=== PATIENT | male | born 1940 | race Caucasian/White ===

== ENCOUNTER 2018-03-18 20:37 | Emergency (ER) | payer MEDICARE, BC ==
--- NOTE | 2018-03-18 20:41 | ER Report ---
History and Physical Time Seen By MD: 20:40 HPI/ROS CHIEF COMPLAINT: Shortness of breath HISTORY OF PRESENT ILLNESS: 77-year-old male with a cardiac history, status post a triple bypass, chronic congestive heart failure, type II diabetes. Patient's here on vacation from [place]. He attended a football game today. She came from [place], [place] yesterday. He has shortness of breath and congested lungs. He stopped taking his Lasix 20 mg per day. Patient's noted that he's had leg swelling for several weeks. He stopped taking his Lasix as he thought it wasn't working. Patient's now at 7200 feet in his respiratory status is deteriorating. He was planning on going up to altitude tomorrow and going deer hunting. REVIEW OF SYSTEMS: Respiratory: As above Cardiovascular: No chest pain, no palpitations. Gastrointestinal: No vomiting, no abdominal pain. Musculoskeletal: No back pain. Allergies: Coded Allergies: No Known Drug Allergies (Unverified , 03/18/18) Home Meds Active Scripts Furosemide (LASIX) 20 Mg Tablet, 1 TAB PO DAILY for leg swelling, #30 TAB Prov:GERMÁN WHALEY DO 03/18/18 Reported Medications Ascorbic Acid/Ascorbate Sodium (Vit C-Macy Hips 500 mg Chew Tb) 500 Mg Tab.chew 03/18/18 Metoprolol Tartrate (METOPROLOL TARTRATE) 25 Mg Tablet, 2 TAB PO BID, TAB 03/18/18 Calcium Carbonate (TUMS) 200 Mg Tab.chew, 200 MG PO, TAB.CHEW 03/18/18 Rosuvastatin Calcium (CRESTOR) 5 Mg Tablet, 5 MG PO QDAY 03/18/18 Cholecalciferol (Vitamin D3) (VITAMIN D3) 1,000 Unit Tablet, 1000 UNIT PO, TAB 03/18/18 Amlodipine Besylate (AMLODIPINE BESYLATE) 10 Mg Tablet, 1 TAB PO QDAY, TAB 03/18/18 Ibuprofen (IBUPROFEN) 400 Mg Tablet, 1 TAB PO Q6H, TAB 03/18/18 Omeprazole (OMEPRAZOLE) 20 Mg Capsule., 1 CAP PO QDAY, CAP 03/18/18 Reviewed Nurses Notes: Yes Old Medical Records Reviewed: Yes Constitutional Vital Sign - Last 24 Hours 03/18/18 03/18/18 03/18/18 03/18/18 20:43 20:45 20:52 21:01 Temp 97.9 Pulse 69 68 63 Resp 22 15 14 B/P (MAP) 154/89 (110) 154/89 Pulse Ox 89 91 O2 Delivery Room Air 03/18/18 03/18/18 03/18/18 03/18/18 21:07 21:22 21:27 21:52 Pulse 103 61 81 Resp 35 20 19 Pulse Ox 88 93 93 O2 Flow Rate 2.0 03/18/18 03/18/18 22:07 22:40 Pulse 85 85 Resp 15 16 B/P (MAP) 138/88 (105) Pulse Ox 95 92 O2 Delivery Room Air Physical Exam General Appearance: The patient is alert, has no immediate need for airway protection and no current signs of toxicity. Vital signs stable, afebrile, pulse ox normal, rhonchorous respirations HEENT: Pupils equal and round no injection. TMs normal, oropharynx without redness or exudates Respiratory: Chest is non tender, bibasilar rales with wheezing Cardiac: regular rate and rhythm, no murmur Gastrointestinal: Abdomen is soft and non tender, no masses, bowel sounds normal. Musculoskeletal: Neck: Neck is supple and non tender. Extremities have full range of motion and are non tender. 2+ edema Skin: No rashes or lesions. DIFFERENTIAL DIAGNOSIS: After history and physical exam differential diagnosis was considered for shortness of breath including but not limited to pulmonary infectious process, COPD, asthma, pulmonary embolus and congestive heart failure. Medical Decision Making Data Points Result Diagram: 03/18/18205503/18/182055 Laboratory Hematology Test 03/18/18 20:56 Red Blood Count 4.66 M/uL (4.00-5.60) Mean Corpuscular Volume 96.2 fL (80.0-96.0) Mean Corpuscular Hemoglobin 33.4 pg (26.0-33.0) Mean Corpuscular Hemoglobin Concent 34.7 g/dL (32.0-36.0) Red Cell Distribution Width 13.7 % (11.5-14.5) Mean Platelet Volume 8.8 fL (7.2-11.1) Neutrophils (%) (Auto) 61.9 % (39.4-72.5) Lymphocytes (%) (Auto) 13.2 % (17.6-49.6) Monocytes (%) (Auto) 21.2 % (4.1-12.4) Eosinophils (%) (Auto) 2.0 % (0.4-6.7) Basophils (%) (Auto) 1.7 % (0.3-1.4) Nucleated RBC Relative Count (auto) 0.1 /100WBC Neutrophils # (Auto) 3.9 K/uL (2.0-7.4) Lymphocytes # (Auto) 0.8 K/uL (1.3-3.6) Monocytes # (Auto) 1.3 K/uL (0.3-1.0) Eosinophils # (Auto) 0.1 K/uL (0.0-0.5) Basophils # (Auto) 0.1 K/uL (0.0-0.1) Nucleated RBC Absolute Count (auto) 0.01 K/uL Peripheral Blood Smear Yes Y/N Sodium Level 138 mmol/L (137-145) Potassium Level 3.3 mmol/L (3.5-5.0) Chloride Level 101 mmol/L (98-107) Carbon Dioxide Level 23 mmol/L (22-30) Blood Urea Nitrogen 39 mg/dl (9-21) Creatinine 2.10 mg/dl (0.66-1.25) Glomerular Filtration Rate Calc 30.6 Random Glucose 105 mg/dl (75-110) Calcium Level 9.2 mg/dl (8.4-10.2) Total Bilirubin 3.0 mg/dl (0.2-1.3) Aspartate Amino Transf (AST/SGOT) 47 U/L (0-35) Alanine Aminotransferase (ALT/SGPT) 47 U/L (0-56) Alkaline Phosphatase 71 U/L (0-126) Troponin I 0.023 ng/ml B-Type Natriuretic Peptide 528 pg/ml (0-100) Total Protein 6.9 g/dl (6.3-8.2) Albumin 3.8 g/dl (3.5-5.0) Chemistry Test 03/18/18 20:56 White Blood Count 6.3 k/uL (4.5-11.0) Red Blood Count 4.66 M/uL (4.00-5.60) Hemoglobin 15.6 g/dL (14.0-18.0) Hematocrit 44.8 % (42.0-52.0) Mean Corpuscular Volume 96.2 fL (80.0-96.0) Mean Corpuscular Hemoglobin 33.4 pg (26.0-33.0) Mean Corpuscular Hemoglobin Concent 34.7 g/dL (32.0-36.0) Red Cell Distribution Width 13.7 % (11.5-14.5) Platelet Count 162 K/uL (150-450) Mean Platelet Volume 8.8 fL (7.2-11.1) Neutrophils (%) (Auto) 61.9 % (39.4-72.5) Lymphocytes (%) (Auto) 13.2 % (17.6-49.6) Monocytes (%) (Auto) 21.2 % (4.1-12.4) Eosinophils (%) (Auto) 2.0 % (0.4-6.7) Basophils (%) (Auto) 1.7 % (0.3-1.4) Nucleated RBC Relative Count (auto) 0.1 /100WBC Neutrophils # (Auto) 3.9 K/uL (2.0-7.4) Lymphocytes # (Auto) 0.8 K/uL (1.3-3.6) Monocytes # (Auto) 1.3 K/uL (0.3-1.0) Eosinophils # (Auto) 0.1 K/uL (0.0-0.5) Basophils # (Auto) 0.1 K/uL (0.0-0.1) Nucleated RBC Absolute Count (auto) 0.01 K/uL Peripheral Blood Smear Yes Y/N Glomerular Filtration Rate Calc 30.6 Calcium Level 9.2 mg/dl (8.4-10.2) Total Bilirubin 3.0 mg/dl (0.2-1.3) Aspartate Amino Transf (AST/SGOT) 47 U/L (0-35) Alanine Aminotransferase (ALT/SGPT) 47 U/L (0-56) Alkaline Phosphatase 71 U/L (0-126) Troponin I 0.023 ng/ml B-Type Natriuretic Peptide 528 pg/ml (0-100) Total Protein 6.9 g/dl (6.3-8.2) Albumin 3.8 g/dl (3.5-5.0) EKG/Imaging EKG Interpretation 12 lead EK Rhythm: normal sinus rhythm [place]: normal QRS: normal ST segments: normal, no evidence of ischemia or dysrhythmia,? Old inferio r Q waves in lead 3 Imaging X-ray: Two-view chest x-ray was obtained. I viewed the images myself on the PACS system. My interpretation of the images is: Clear lung nugent, cardi omegaly, median sternotomy wires noted, no effusion, no evidence of acute congestive heart failure. The radiologist interpretation had no clinically significant variation from this interpretation. ED Course/Re-evaluation Clinical Indication for ER IV: IV Access ED Course Patient was admitted to an examination room. H&P was done. The differential diagnosis was considered. On clinical examination. Patient has chest congestion consistent with congestive failure. He has bilateral lower extremity edema. Nostril evaluation is undertaken. His markers are unremarkable except for an elevated BNP of 600. Chest x-ray shows clear lung nugent. His pulse ox is normal on room air. Patient's beginning to decompensated altitude with her thin air. He needs to resume his Lasix. He was given 40 of Lasix here IV and Zaroxolyn 5 mg by mouth. Patient was beginning to have good diuresis here in the ER. Patient advised to go to a lower altitude. Allow a couple days of diuresis and then attempted come back up to altitude possible patient's unable to tolerated. He needs to follow-up with upon returning home. Prescription for Lasix provided for 20 mg. Decision to Disposition Date: Mar 18, 2018 Decision to Disposition Time: 22:22 Depart Departure Latest Vital Signs Vital Signs Date Time Temp Pulse Resp B/P (MAP) Pulse Ox O2 Delivery O2 Flow Rate FiO2 03/18/18 22:40 85 16 138/88 (105) 92 Room Air 03/18/18 21:27 2.0 03/18/18 20:45 97.9 Impression: Primary Impression: Congestive heart failure Condition: Improved Disposition: HOME OR SELF-CARE New Scripts Furosemide (LASIX) 20 Mg Tablet 1 TAB PO DAILY for leg swelling, #30 TAB Prov: GERMÁN WHALEY DO 03/18/18 Patient Instructions: Heart Failure (ED) Additional Instructions: Take Lasix 20 mg per day, if no improvement in 3 days. Increase Lasix to 40 mg a day Follow-up with your physician upon returning home to [place] Problem Qualifiers Primary Impression: Congestive heart failure Heart failure type: unspecified Heart failure chronicity: unspecified Qualified Codes: I50.9 - Heart failure, unspecified GERMÁN WHALEY DO Mar 18, 2018 20:41
[2018-03-18] MEDS ORDERED: METOLAZONE 2.5 MG TAB PO ONE (20:50)
[2018-03-18] MEDS ORDERED: ALBUTEROL/IPRATROPIUM 3 ML NEB NEB ONE (20:50)
[2018-03-18] MEDS ORDERED: FUROSEMIDE 40 MG/4 ML VIAL IVP ONE (20:50)
[2018-03-18] MEDS ORDERED: CHOL10005 PO (21:02)
[2018-03-18] MEDS ORDERED: ROSU5TAB8 PO (21:02)
[2018-03-18] MEDS ORDERED: CALC-515 PO (21:02)
[2018-03-18] MEDS ORDERED: AMLO-113 PO (21:02)
[2018-03-18] MEDS ORDERED: OMEP-125 PO (21:02)
[2018-03-18] MEDS ORDERED: METO25TA93 PO (21:02)
[2018-03-18] MEDS ORDERED: IBUP400T13 PO (21:02)
[2018-03-18] MEDS ORDERED: ASCO500T35 (21:03)
[2018-03-18 21:10] LABS: PLATELET COUNT, AUTOMATED 162 K/uL (150-450)
--- NOTE | 2018-03-18 21:10 | EKG ---
FACILITY: [facility] [place] PATIENT NAME: TERE BENEDICT : [id number] MR: [id number] V: [id number] EXAM DATE: ORDERING PHYSICIAN: GERMÁN WHALEY TECHNOLOGIST: YAO Test Reason : SOB Blood Pressure : / mmHG Vent. Rate : 066 BPM Atrial Rate : 066 BPM P-R Int : 148 ms QRS Dur : 096 ms QT Int : 424 ms P-R-T Axes : 011 041 058 degrees QTc Int : 444 ms Normal sinus rhythm Normal ECG No previous ECGs available Confirmed by JAZZY LAGUERRE ([id number]) on 03/19/2018 6:24:09 AM Referred By: JUDD Confirmed By:JAZZY LAGUERRE
--- NOTE | 2018-03-18 22:03 | RADIOLOGY IMAGING REPORT ---
FACILITY: [facility] PATIENT NAME: Vance Hayes : 1940 MR: [id number] V: [id number] EXAM DATE: ORDERING PHYSICIAN: GERMÁN WHALEY TECHNOLOGIST: Location: [facility] [place] Patient: Vance Hayes : 1940 Visit/Account:[id number] Date of Sevice: 03/18/2018 CHEST PA AND LAT History: dyspnea FINDINGS: Comparison studies: None. Tubes and Lines: None. Lungs and pleura: Well aerated. No evidence of focal consolidation or pleural effusions. Mediastinum: normal. Cardiac silhouette: Previous cardiac surgery. Atrial clip noted. Cardiac silhouette is mildly enlarge d. Osseous structures: Unremarkable for age . IMPRESSION: Mild cardiomegaly without evidence of failure. No acute cardiopulmonary pathology identified. Report Dictated By: Quoc Manley MD at 03/18/2018 9:58 PM Report E-Signed By: Quoc Manley MD at 03/18/2018 10:00 PM [id number]
[2018-03-18] MEDS ORDERED: FURO20TA19 PO (22:24)
[2018-03-18 22:40] VITALS: BP 138/88
== END 2018-03-18 22:44 | disposition home or self-care (01) ==
LOC: ER 20:48
DX: I50.9 Heart failure, unspecified (principal); R60.0 Localized edema; E11.9 Type 2 diabetes mellitus without complications
CPT/HCPCS: 71046; 83880; 84484; 85025; 93005; 94640; 96374; 99283; A9270; J1940; J7620; 82040; 82247; 82310; 82374; 82435; 82565; 82947; 84075; 84132; 84155; 84295; 84450; 84460; 84520